=== PATIENT | male | born 2000 | race American Indian/Alaskan Native ===

== ENCOUNTER 2021-03-31 08:44 | Emergency (ER) | payer MEDICAID ==
[2021-03-31] MEDS ORDERED: ONDANSETRON 4 MG ODT TAB PO ONE (08:46)
--- NOTE | 2021-03-31 08:48 | Event Note ---
ED Screening Note Date of service: 03/31/21 Time: 08:47 ED Screening Note: Patient complains of sudden onset of mid abdominal pain x3 days Pain worsening now with vomit last night Patient states vomit is dark and does resemble coffee grounds Denies diarrhea Patient appears uncomfortable Significant tenderness to palpation of the periumbilical epigastric region on exam without right lower quadrant tenderness This initial assessment/diagnostic orders/clinical plan/treatment(s) is/are subject to change based on patients health status, clinical progression and re- assessment by fellow clinical providers in the ED. Further treatment and workup at subsequent clinical providers discretion. Patient/guardian urged not to elope from the ED as their condition may be serious if not clinically assessed and managed. Initial orders include: Labs Patient will need CT
[2021-03-31] MEDS ORDERED: ONDANSETRON 4 MG ODT TAB PO SCH (09:00)
[2021-03-31 09:26] LABS: Basophils # (Auto) 0.1 K/mm3 (0.0-0.1); Basophils % (Auto) 1.3 % (0.0-1.8); Eosinophils # (Auto) 0.2 K/mm3 (0.0-0.4); Hematocrit 44.7 % (35.5-45.6); Hemoglobin 15.1 gm/dl (11.8-15.2); Lymphocytes # (Auto) 1.1 K/mm3 (1.2-5.4); Lymphocytes % (Auto) 18.8 % (13.4-35.0); Mean Corpuscular HGB Conc 34 % (32-34); Mean Corpuscular Volume 86 fl (84-94); Monocytes # (Auto) 0.4 K/mm3 (0.0-0.8); Monocytes % (Auto) 6.6 % (0.0-7.3); Platelet Count 219 K/mm3 (140-440); Red Cell Distribution Width 13.1 % (13.2-15.2)
[2021-03-31 10:12] LABS: Alanine Aminotransferase 18 units/L (7-56); Albumin 4.6 g/dL (3.9-5); BUN/Creatinine Ratio 15; Blood Urea Nitrogen 12 mg/dL (9-20); Calcium 9.6 mg/dL (8.4-10.2); Hemolysis Index 15
[2021-03-31 10:12] LABS: Bacteria,Urine 1+ /HPF (Negative); Bilirubin,Urine NEG (Negative); Blood,Urine NEG (Negative); Color,Urine Yellow (Yellow); Mucus,Urine FEW /HPF; Urobilinogen,Urine < 2.0 mg/dL (<2.0)
--- NOTE | 2021-03-31 14:05 | Cat Scan Report ---
CT abdomen pelvis w con INDICATION: Acute periumbilical pain. COMPARISON: None TECHNIQUE: Abdominal and pelvic CT exam performed. All CT scans at this location are performed using CT dose reduction for ALARA by means of automated exposure control. FINDINGS: CT ABDOMEN and PELVIS: Lung Bases: No significant abnormality. Liver: No significant abnormality. Biliary: No significant abnormality. Spleen: No significant abnormality. Pancreas: No significant abnormality. Adrenals: No significant abnormality. Kidneys: No significant abnormality. Lymphatics: No lymphadenopathy. Vasculature: No significant abnormality. Bowel: No significant abnormality. Normal appendix. Pelvis: No significant abnormality. Osseous Structures: No aggressive osseous lesion. Additional Findings: None IMPRESSION: 1. No significant abnormality of the abdomen or pelvis. Signer Name: Gabriele Baker MD Signed: 03/31/2021 2:01 PM Workstation Name: [id number]
[2021-03-31] MEDS ORDERED: diphenhydrAMINE 50 MG/ML VIAL IV ONE (14:22)
[2021-03-31] MEDS ORDERED: KETOROLAC 10 MG TAB PO ONE (14:22)
[2021-03-31] MEDS ORDERED: METOCLOPRAMIDE 10 MG/2 ML INJ IV ONE (14:22)
[2021-03-31] MEDS ORDERED: LACTATED RINGERS 1,000 ML IV ONE (14:23)
--- NOTE | 2021-03-31 15:15 | Emergency Department Report ---
ED General Adult HPI - General Chief complaint: Abdominal Pain Stated complaint: ABD PAIN/VOMITING Time Seen by Provider: 03/31/21 08:46 Source: patient Mode of arrival: Ambulatory Limitations: No Limitations - History of Present Illness Initial comments: Patient complains of sudden onset of mid abdominal pain x3 days Pain worsening now with vomit last night Patient states vomit is dark and does resemble coffee grounds Denies any past medical history or history of abdominal surgery Denies diarrhea Patient appears uncomfortable Significant tenderness to palpation of the periumbilical epigastric region on exam without right lower quadrant tenderness -: Sudden - Related Data Previous Rx's Medication Instructions Recorded Last Taken Type Famotidine [Pepcid] 20 mg PO BID 10 Days #20 tablet 03/31/21 Unknown Rx Ondansetron [Zofran ODT TAB] 8 mg PO Q8HR PRN #15 tab.rapdis 03/31/21 Unknown Rx Allergies Allergy/AdvReac Type Severity Reaction Status Date / Time No Known Allergies Allergy Unverified 03/31/21 08:48 ED Review of Systems ROS: Stated complaint: ABD PAIN/VOMITING Other details as noted in HPI Constitutional: malaise. denies: chills, diaphoresis, fever Respiratory: denies: cough, shortness of breath Cardiovascular: denies: chest pain Gastrointestinal: abdominal pain, nausea, vomiting. denies: diarrhea, constipation, hematemesis, melena, hematochezia Genitourinary: denies: urgency, dysuria, frequency, hematuria, discharge Musculoskeletal: denies: back pain Skin: denies: rash, lesions, change in color Neurological: denies: headache Hematological/Lymphatic: denies: swollen glands ED Past Medical Hx - Past Medical History Previous Medical History?: No - Surgical History Past Surgical History?: No - Medications Home Medications: Home Medications Medication Instructions Recorded Confirmed Last Taken Type Famotidine [Pepcid] 20 mg PO BID 10 Days #20 tablet 03/31/21 Unknown Rx Ondansetron [Zofran ODT TAB] 8 mg PO Q8HR PRN #15 tab.rapdis 03/31/21 Unknown Rx ED Physical Exam - General Limitations: No Limitations General appearance: alert, in no apparent distress - Head Head exam: Present: atraumatic, normocephalic - Eye Eye exam: Present: normal appearance. Absent: scleral icterus - Neck Neck exam: Present: normal inspection - Respiratory Respiratory exam: Present: normal lung sounds bilaterally. Absent: respiratory distress - Cardiovascular Cardiovascular Exam: Present: regular rate, normal rhythm - GI/Abdominal GI/Abdominal exam: Present: soft, tenderness (Periumbilical/epigastric), normal bowel sounds. Absent: distended, rebound, rigid - Extremities Exam Extremities exam: Present: full ROM - Back Exam Back exam: Present: full ROM. Absent: CVA tenderness (R), CVA tenderness (L) - Neurological Exam Neurological exam: Present: alert, oriented X3, normal gait - Psychiatric Psychiatric exam: Present: normal affect, normal mood - Skin Skin exam: Present: warm, dry, intact, normal color. Absent: rash ED Course Vital Signs 03/31/21 08:49 Temperature 97.7 F Pulse Rate 63 Respiratory 20 Rate Blood Pressure 142/93 O2 Sat by Pulse 100 Oximetry ED Medical Decision Making - Lab Data Result diagrams: 03/31/21 08:53 03/31/21 08:53 Lab Results 03/31/21 03/31/21 03/31/21 Range/Units 08:53 08:53 09:17 WBC 5.8 (4.5-11.0) K/mm3 RBC 5.20 H (3.65-5.03) M/mm3 Hgb 15.1 (11.8-15.2) gm/dl Hct 44.7 (35.5-45.6) % MCV 86 (84-94) fl MCH 29 (28-32) pg MCHC 34 (32-34) % RDW 13.1 L (13.2-15.2) % Plt Count 219 (140-440) K/mm3 Lymph % (Auto) 18.8 (13.4-35.0) % [place] % (Auto) 6.6 (0.0-7.3) % Eos % (Auto) 4.0 (0.0-4.3) % Baso % (Auto) 1.3 (0.0-1.8) % Lymph # (Auto) 1.1 L (1.2-5.4) K/mm3 [place] # (Auto) 0.4 (0.0-0.8) K/mm3 Eos # (Auto) 0.2 (0.0-0.4) K/mm3 Baso # (Auto) 0.1 (0.0-0.1) K/mm3 Seg Neutrophils % 69.3 (40.0-70.0) % Seg Neutrophils # 4.0 (1.8-7.7) K/mm3 Sodium 138 (137-145) mmol/L Potassium 4.5 (3.6-5.0) mmol/L Chloride 101.8 (98-107) mmol/L Carbon Dioxide 22 (22-30) mmol/L Anion Gap 19 mmol/L BUN 12 (9-20) mg/dL Creatinine 0.8 (0.8-1.3) mg/dL Estimated GFR > 60 ml/min BUN/Creatinine Ratio 15 % Glucose 107 H (75-100) mg/dL Calcium 9.6 (8.4-10.2) mg/dL Total Bilirubin 1.40 H (0.1-1.2) mg/dL AST 26 (5-40) units/L ALT 18 (7-56) units/L Alkaline Phosphatase 107 (35-129) units/L Total Protein 8.3 H (6.3-8.2) g/dL Albumin 4.6 (3.9-5) g/dL Albumin/Globulin Ratio 1.2 % Lipase 19 (13-60) units/L Urine Color Yellow (Yellow) Urine Turbidity Cloudy (Clear) Urine pH 9.0 H (5.0-7.0) Ur Specific [place] 1.023 (1.003-1.030) Urine Protein 100 mg/dl (Negative) mg/dL Urine Glucose (UA) Neg (Negative) mg/dL Urine Ketones Tr (Negative) mg/dL Urine Blood Neg (Negative) Urine Nitrite Neg (Negative) Urine Bilirubin Neg (Negative) Urine Urobilinogen < 2.0 (<2.0) mg/dL Ur Leukocyte Esterase Neg (Negative) Urine WBC (Auto) 1.0 (0.0-6.0) /HPF Urine RBC (Auto) 4.0 (0.0-6.0) /HPF Urine Bacteria (Auto) 1+ (Negative) /HPF Urine Mucus Few /HPF - Radiology Data Radiology results: report reviewed CT abdomen pelvis w con INDICATION: Acute periumbilical pain. COMPARISON: None TECHNIQUE: Abdominal and pelvic CT exam performed. All CT scans at this location are performed using CT dose reduction for ALARA by means of automated exposure control. FINDINGS: CT ABDOMEN and PELVIS: Lung Bases: No significant abnormality. Liver: No significant abnormality. Biliary: No significant abnormality. Spleen: No significant abnormality. Pancreas: No significant abnormality. Adrenals: No significant abnormality. Kidneys: No significant abnormality. Lymphatics: No lymphadenopathy. Vasculature: No significant abnormality. Bowel: No significant abnormality. Normal appendix. Pelvis: No significant abnormality. Osseous Structures: No aggressive osseous lesion. Additional Findings: None IMPRESSION: 1. No significant abnormality of the abdomen or pelvis. - Medical Decision Making Patient complains of sudden onset of mid abdominal pain x3 days Pain worsening now with vomit last night Patient states vomit is dark and does resemble coffee grounds Denies any past medical history or history of abdominal surgery Denies diarrhea Patient appears uncomfortable Significant tenderness to palpation of the periumbilical epigastric region on exam without right lower quadrant tenderness Active vomiting observed here in ED-no hematemesis or coffee-ground emesis observed. CBC, CMP, lipase are without acute findings. UA is normal. CT with contrast of the abdomen is negative for any acute abnormalities. Patient's vitals remain normal. Patient given Toradol, Reglan, Benadryl, and 1 L of fluids. Patient does admit to marijuana use. Haldol given IM. Suspect hyperemesis cannabinoid syndrome. His vitals are normal, he is well-appearing he is stable for discharge home to follow-up with primary care in 3 to 5 days. Strict return precautions discussed in detail with patient verbalized understanding. Critical care attestation.: If time is entered above; I have spent that time in minutes in the direct care of this critically ill patient, excluding procedure time. ED Disposition Clinical Impression: Vomiting with nausea, not intractable Disposition: DC-01 TO HOME OR SELFCARE Is pt being admited?: No Condition: Stable Instructions: Cannabinoid Hyperemesis Syndrome, Gastritis, Adult Prescriptions: Famotidine [Pepcid] 20 mg PO BID 10 Days #20 tablet Ondansetron [Zofran ODT TAB] 8 mg PO Q8HR PRN #15 tab.rapdis PRN Reason: nausea Referrals: [facility] [Provider Group] - 3-5 Days
[2021-03-31] MEDS ORDERED: HALOPERIDOL LACTATE 5 MG/1 ML INJ IM ONE (15:18)
[2021-03-31 16:12] VITALS: BP 129/75
== END 2021-03-31 16:11 | disposition home or self-care (01) ==
LOC: ED 08:44
DX: R11.2 Nausea with vomiting, unspecified (principal); R10.33 Periumbilical pain; Z79.899 Other long term (current) drug therapy
CPT/HCPCS: 36415; 74177; 80053; 81001; 83690; 85025; 96361; 96372; 96374; 96375; 99284; J1200; J1630; J2765; J7120; Q9967; Q0162

== ENCOUNTER 2022-01-02 13:34 | Emergency (ER) | payer SELFPAY ==
[2022-01-02] MEDS ORDERED: NEOMY 3.5 MG/BACIT 400 UNITS/POLY B 5000 UNITS/GM OINT PACKET TP ONE (14:18)
[2022-01-02] MEDS ORDERED: hydrOXYzine PAMOATE 25 MG CAP PO ONE (14:18)
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
[2022-01-02 15:21] VITALS: BP 119/62
== END 2022-01-02 15:21 | disposition home or self-care (01) ==
LOC: ED 13:34
DX: T25.231A Burn of second degree of right toe(s) (nail), initial encounter (principal); X08.8XXA Exposure to other specified smoke, fire and flames, initial encounter; Y93.89 Activity, other specified; Y92.89 Other specified places as the place of occurrence of the external cause; Y99.8 Other external cause status
CPT/HCPCS: 99283